=== PATIENT | female | born 1955 | race Caucasian/White ===

== ENCOUNTER 2023-10-08 06:30 | Day surgery (SDC) | payer BC ==
[2023-10-07 10:19] VITALS: BMI 27.3
[2023-10-08] MEDS ORDERED: PROPOFOL 20 ML ONE (07:38)
[2023-10-08] MEDS ORDERED: fentaNYL 50 mcg/mL 1 mL Vial ONE (08:21)
[2023-10-08] MEDS ORDERED: Dexamethasone 4 mg/ml Vial ONE (08:21)
[2023-10-08] MEDS ORDERED: Ondansetron PF 4 MG/2 ML Vial ONE (08:21)
[2023-10-08] MEDS ORDERED: EPINEPHrine 1 MG/ML VIAL ONE (08:21)
[2023-10-08] MEDS ORDERED: Bupivacaine PF 0.5% 30 ML VIAL ONE (08:21)
[2023-10-08] MEDS ORDERED: ceFOXitin 1 GM VIAL ONE (08:28)
[2023-10-08] MEDS ORDERED: Lidocaine 1% PF 5 ML VIAL ONE (09:01)
[2023-10-08] MEDS ORDERED: Ketorolac Tromethamine 30 MG (1 mL) VIAL ONE (09:02)
[2023-10-08] MEDS ORDERED: Lidocaine 2% 6 ML (Jelly) SYR ONE (09:09)
[2023-10-08] MEDS ORDERED: HYDROcodone/Acetaminophen 5/325 mg Tablet PO PRN (09:30)
== END 2023-10-08 10:15 | disposition home or self-care (01) ==
LOC: CSHSDC 06:30
PROVIDERS: ATTEND Surgery
PROC: 0HB9XZZ Excision of Perineum Skin, External Approach (ICD-10-PCS; principal; 2023-10-08)
DX: K62.89 Other specified diseases of anus and rectum (principal); K64.4 Residual hemorrhoidal skin tags; K64.8 Other hemorrhoids; E05.90 Thyrotoxicosis, unspecified without thyrotoxic crisis or storm; F10.90 Alcohol use, unspecified, uncomplicated; F32.A Depression, unspecified; R15.9 Full incontinence of feces; R19.00 Intra-abdominal and pelvic swelling, mass and lump, unspecified site; R59.0 Localized enlarged lymph nodes; Z87.891 Personal history of nicotine dependence; Z90.89 Acquired absence of other organs; Z90.710 Acquired absence of both cervix and uterus; Z90.49 Acquired absence of other specified parts of digestive tract; Z79.890 Hormone replacement therapy; Z79.899 Other long term (current) drug therapy
CPT/HCPCS: 88304; 88305; 88342; J0171; J0694; J1100; J1885; J2405; J2704; J3010; S0020